=== PATIENT | male | born 1980 | race Caucasian/White ===

== ENCOUNTER 2021-01-26 17:58 | Inpatient (IN) ==
[2021-01-26] MEDS ORDERED: ETOMIDATE 20 MG/10 ML VIAL IV ONE (19:09)
[2021-01-26] MEDS ORDERED: ROCURONIUM 100 MG/10 ML VIAL IV ONE (19:09)
[2021-01-26 19:21] LABS: Basophils # 0.1 10*3/uL (0.0-0.2); Basophils % 0.9 % (0.0-0.8); Eosinophils # 0.3 10*3/uL (0.0-0.87); Eosinophils % 4.8 % (0.00-10.9); Hematocrit 30.6 VOL% (42.0-52.0); Hemoglobin 9.6 GM/DL (14.0-18.0); Immature Granulocytes % 0.3 %; Immature Granulocytes Absolute 0.02 #; Lymphocytes # 2.7 10*3/uL (1.4-4.0); Lymphocytes % 39.1 % (21.2-54.2); Mean Corpuscular HGB Conc 31.4 GM/DL (32-36); Mean Corpuscular Volume 92.4 FL (87-102); Mean Platelet Volume 11.1 FL (9.6-12.0); Monocytes % 4.7 % (1.7-12.7); Neutrophils % 50.2 % (38.7-73.9); Platelet Count 242 T/CUMM (130-400); Red Blood Count 3.31 MC/CUMM (3.8-5.5); Red Cell Distribution Width 11.9 % (9.3-17.3); White Blood Count 6.9 T/CUMM (4-12)
[2021-01-26 19:30] LABS: Bilirubin,Urine Negative (Negative); Blood, Urine Negative (Negative); Glucose,Urine (UA) Negative (Negative); Ketones,Urine Negative (Negative); Nitrite,Urine Negative (Negative); Protein,Urine Negative; Urine Appearance CLEAR (Clear); Urine Color Yellow (Yellow); Urine Specific Gravity 1.009 (1.001-1.035); Urine Urobilinogen < 2.0 EU/DL (<2.0)
[2021-01-26 19:34] LABS: INR 1.1; PT Patient Result 12.5 SECS (10.5-12.0); Partial Thromboplastin Time 22.2 SECS (23.8-32.1)
[2021-01-26 19:36] LABS: Alanine Aminotransferase 30 U/L (16-61); Albumin 3.5 G/DL (3.4-5.0); Alkaline Phosphatase 81 U/L (45-117); Amylase 38 U/L (25-115); Aspartate Amino Transferase 32 U/L (0-37); Blood Urea Nitrogen 9 MG/DL (7-18); Calcium 8.8 MG/DL (8.5-10.1); Carbon Dioxide 24 MMOL/L (21-32); Estimated Glom Filtration Rate 91 ML/MIN; Glucose 180 MG/DL (74-106); Osmolality,Calculated 282.4 MOS/KG (273-304); Potassium 3.5 MMOL/L (3.5-5.1); Sodium 140 MMOL/L (136-145); Total Protein 6.6 G/DL (6.4-8.2)
[2021-01-26 19:46] LABS: ABG Base Excess -2.8 MMOL/L (-2.5-2.5); ABG HCO3 22.1 MMOL/L (20-26); ABG Oxygen Saturation 99.5 % (95-100); ABG PCO2 55.4 MM HG (35-48); ABG PH 7.262 (7.35-7.45); ABG TCO2 22.8 MMOL/L (23-27)
[2021-01-26 19:47] LABS: Lactic Acid 5.7 MMOL/L (0.4-2.0)
[2021-01-26 19:49] LABS: Bacteria,Urine Occasional /HPF (Few); Hyaline Casts,Urine 1 /LPF (0-3); Mucus,Urine Occasional /LPF (Occasional); Squamous Epithelial Cell,Urine Occasional /HPF (0-10)
[2021-01-26 20:09] LABS: Barbiturates Screen,Urine Negative (Negative); Benzodiazepines Screen,Urine Positive (Negative); Cannabinoid Screen,Urine Negative (Negative); Opiate Screen,Urine Negative (Negative); Phencyclidine Screen,Urine Negative (Negative)
[2021-01-26] MEDS: LACTATED RINGERS 1,000 ML IV SCH (20:09)
[2021-01-26] MEDS: MIDAZOLAM 100 MG in SODIUM CHLORIDE 0.9% 80 ML IV PRN (20:35)
[2021-01-26] MEDS: HYDROmorphone 2 MG/1 ML VIAL IV PRN (21:02)
[2021-01-26] MEDS: fentaNYL INJ 1,250 MCG in SODIUM CHLORIDE 0.9% 225 ML IV PRN (21:30)
[2021-01-26 21:34] LABS: Basophils % 0.3 % (0.0-0.8); Eosinophils # 0.1 10*3/uL (0.0-0.87); Eosinophils % 0.5 % (0.00-10.9); Hematocrit 35.5 VOL% (42.0-52.0); Hemoglobin 11.4 GM/DL (14.0-18.0); Immature Granulocytes % 0.4 %; Immature Granulocytes Absolute 0.06 #; Lymphocytes # 1.9 10*3/uL (1.4-4.0); Lymphocytes % 12.9 % (21.2-54.2); Mean Corpuscular HGB Conc 32.1 GM/DL (32-36); Mean Platelet Volume 10.3 FL (9.6-12.0); Monocytes % 5.7 % (1.7-12.7); Neutrophils % 80.2 % (38.7-73.9); Platelet Count 182 T/CUMM (130-400); White Blood Count 14.6 T/CUMM (4-12)
[2021-01-26] MEDS ORDERED: SODIUM CHLORIDE 0.9% 1,000 ML IV PRN (23:30)
[2021-01-27] MEDS ORDERED: POTASSIUM CHLORIDE RIDER 20 MEQ/100 ML PREMIX IV PRN (01:35)
[2021-01-27] MEDS ORDERED: POTASSIUM CHLORIDE RIDER 10 MEQ/100 ML PREMIX IV PRN (01:35)
[2021-01-27] MEDS ORDERED: MAGNESIUM SULF RIDER 4 GM/100 ML PREMIX IV PRN (01:35)
[2021-01-27] MEDS: LACTATED RINGERS 1,000 ML IV SCH ×4 (02:50→21:40)
[2021-01-27] MEDS: HYDROmorphone 2 MG/1 ML VIAL IV PRN (03:45)
[2021-01-27 03:56] LABS: ABG Base Excess 0.1 MMOL/L (-2.5-2.5); ABG HCO3 26.1 MMOL/L (20-26); ABG Oxygen Saturation 96.2 % (95-100); ABG PCO2 48.4 MM HG (35-48); ABG PO2 86.4 MM HG (80-95); ABG TCO2 27.6 MMOL/L (23-27)
[2021-01-27] MEDS: MIDAZOLAM 100 MG in SODIUM CHLORIDE 0.9% 80 ML IV PRN (04:45)
[2021-01-27 05:36] LABS: Basophils % 0.3 % (0.0-0.8); Eosinophils # 0.1 10*3/uL (0.0-0.87); Eosinophils % 0.7 % (0.00-10.9); Hematocrit 31.9 VOL% (42.0-52.0); Hemoglobin 10.3 GM/DL (14.0-18.0); Immature Granulocytes % 0.4 %; Immature Granulocytes Absolute 0.04 #; Lymphocytes # 1.1 10*3/uL (1.4-4.0); Lymphocytes % 11.2 % (21.2-54.2); Mean Corpuscular HGB Conc 32.3 GM/DL (32-36); Mean Corpuscular Volume 91.4 FL (87-102); Mean Platelet Volume 11.2 FL (9.6-12.0); Neutrophils % 80.4 % (38.7-73.9); Platelet Count 150 T/CUMM (130-400); Red Blood Count 3.49 MC/CUMM (3.8-5.5); Red Cell Distribution Width 13.4 % (9.3-17.3)
[2021-01-27 05:53] LABS: Calcium 7.6 MG/DL (8.5-10.1); Potassium 3.8 MMOL/L (3.5-5.1)
[2021-01-27] MEDS: ONDANSETRON 4 MG/2 ML VIAL IV PRN ×2 (06:45→23:46)
[2021-01-27] MEDS ORDERED: CALCIUM GLUCONATE 1,000 MG in SODIUM CHLORIDE 0.9% 100 ML IV ONE (07:20)
[2021-01-27 07:30] LABS: Hematocrit 34.3 VOL% (42.0-52.0)
[2021-01-27] MEDS: fentaNYL INJ 1,250 MCG in SODIUM CHLORIDE 0.9% 225 ML IV PRN ×3 (08:21→21:38)
[2021-01-27] MEDS: DEXMEDETOMIDINE 200 MCG in SODIUM CHLORIDE 0.9% 48 ML IV PRN ×3 (08:58→23:08)
[2021-01-27] MEDS: PANTOPRAZOLE 40 MG VIAL IV SCH (09:04)
[2021-01-27] MEDS: VANCOMYCIN INJ 1,250 MG in SODIUM CHLORIDE 0.9% 250 ML IV SCH ×2 (10:15→21:39)
[2021-01-27] MEDS: MAGNESIUM SULF RIDER 2 GM/50 ML PREMIX IV PRN ×2 (13:35→15:23)
[2021-01-27 13:40] LABS: Hematocrit 28.6 VOL% (42.0-52.0); Hemoglobin 9.1 GM/DL (14.0-18.0)
[2021-01-27] MEDS ORDERED: LACTATED RINGERS 1,000 ML IV ONE (13:57)
[2021-01-27] MEDS ORDERED: SODIUM CHLORIDE 0.9% 1,000 ML IV PRN (16:04)
[2021-01-27 17:05] LABS: Basophils % 0.4 % (0.0-0.8); Eosinophils # 0.4 10*3/uL (0.0-0.87); Eosinophils % 4.7 % (0.00-10.9); Hematocrit 29.7 VOL% (42.0-52.0); Hemoglobin 9.5 GM/DL (14.0-18.0); Immature Granulocytes % 0.4 %; Immature Granulocytes Absolute 0.04 #; Lymphocytes # 1.8 10*3/uL (1.4-4.0); Lymphocytes % 18.8 % (21.2-54.2); Mean Platelet Volume 10.8 FL (9.6-12.0); Monocytes % 7.9 % (1.7-12.7); Neutrophils % 67.8 % (38.7-73.9); Platelet Count 141 T/CUMM (130-400); Red Blood Count 3.23 MC/CUMM (3.8-5.5); Red Cell Distribution Width 13.4 % (9.3-17.3); White Blood Count 9.4 T/CUMM (4-12)
[2021-01-27 17:13] LABS: INR 1.2; PT Patient Result 12.9 SECS (10.5-12.0)
[2021-01-27 17:19] LABS: Calcium 7.7 MG/DL (8.5-10.1); Osmolality,Calculated 281.1 MOS/KG (273-304)
[2021-01-27] MEDS: HYDROCORTISONE 100 MG VIAL IV SCH ×2 (18:14→23:20)
[2021-01-28] MEDS: HYDROmorphone 2 MG/1 ML VIAL IV PRN ×9 (01:09→22:14)
[2021-01-28] MEDS: LACTATED RINGERS 1,000 ML IV SCH ×3 (04:25→17:55)
[2021-01-28] MEDS: DEXMEDETOMIDINE 200 MCG in SODIUM CHLORIDE 0.9% 48 ML IV PRN ×2 (04:26→10:49)
[2021-01-28 05:10] LABS: ABG Base Excess -3.6 MMOL/L (-2.5-2.5); ABG HCO3 21.4 MMOL/L (20-26); ABG Oxygen Saturation 98.9 % (95-100); ABG PCO2 47.5 MM HG (35-48); ABG PH 7.293 (7.35-7.45); ABG TCO2 21.3 MMOL/L (23-27)
[2021-01-28 05:19] LABS: Basophils % 0.5 % (0.0-0.8); Eosinophils % 0.2 % (0.00-10.9); Hematocrit 30.4 VOL% (42.0-52.0); Hemoglobin 9.7 GM/DL (14.0-18.0); Immature Granulocytes % 0.4 %; Immature Granulocytes Absolute 0.03 #; Mean Corpuscular HGB Conc 31.9 GM/DL (32-36); Mean Corpuscular Volume 92.1 FL (87-102); Mean Platelet Volume 11.1 FL (9.6-12.0); Monocytes % 5.3 % (1.7-12.7); Neutrophils % 81.6 % (38.7-73.9); Platelet Count 121 T/CUMM (130-400); White Blood Count 8.4 T/CUMM (4-12)
[2021-01-28 05:30] LABS: Calcium 7.9 MG/DL (8.5-10.1); Osmolality,Calculated 282.1 MOS/KG (273-304)
[2021-01-28] MEDS: HYDROCORTISONE 100 MG VIAL IV SCH ×4 (05:36→22:14)
[2021-01-28] MEDS: PANTOPRAZOLE 40 MG VIAL IV SCH (09:01)
[2021-01-28] MEDS: VANCOMYCIN INJ 1,250 MG in SODIUM CHLORIDE 0.9% 250 ML IV SCH ×2 (09:34→22:14)
[2021-01-28 13:12] LABS: ABG Base Excess -2.3 MMOL/L (-2.5-2.5); ABG HCO3 22.4 MMOL/L (20-26); ABG Oxygen Saturation 94.1 % (95-100); ABG PCO2 48.1 MM HG (35-48); ABG PO2 73.4 MM HG (80-95); ABG TCO2 22.3 MMOL/L (23-27)
[2021-01-28 15:05] LABS: ABG Base Excess -0.3 MMOL/L (-2.5-2.5); ABG HCO3 24.2 MMOL/L (20-26); ABG Oxygen Saturation 96.9 % (95-100); ABG PCO2 31.6 MM HG (35-48); ABG PH 7.467 (7.35-7.45); ABG TCO2 20.7 MMOL/L (23-27)
[2021-01-29] MEDS: HYDROmorphone 2 MG/1 ML VIAL IV PRN ×6 (01:13→21:10)
[2021-01-29] MEDS: LACTATED RINGERS 1,000 ML IV SCH ×2 (02:15→10:41)
[2021-01-29] MEDS: HYDROCORTISONE 100 MG VIAL IV SCH ×2 (04:03→09:21)
[2021-01-29] MEDS: PANTOPRAZOLE 40 MG VIAL IV SCH (09:22)
[2021-01-29] MEDS: VANCOMYCIN INJ 1,250 MG in SODIUM CHLORIDE 0.9% 250 ML IV SCH (10:22)
[2021-01-29] MEDS: ALBUTEROL/IPRATROPIUM 3 ML NEB RESP TX SCH ×2 (12:55→19:55)
[2021-01-29] MEDS: GABAPENTIN 400 MG CAPSULE PO SCH ×2 (15:21→21:27)
[2021-01-29] MEDS: VANCOMYCIN INJ 1,500 MG in SODIUM CHLORIDE 0.9% 500 ML IV SCH (21:35)
[2021-01-30] MEDS: ALBUTEROL/IPRATROPIUM 3 ML NEB RESP TX SCH ×4 (02:55→19:54)
[2021-01-30] MEDS: HYDROmorphone 2 MG/1 ML VIAL IV PRN ×3 (03:55→20:42)
[2021-01-30 06:50] LABS: Basophils % 0.4 % (0.0-0.8); Eosinophils # 0.2 10*3/uL (0.0-0.87); Eosinophils % 2.9 % (0.00-10.9); Hematocrit 23.8 VOL% (42.0-52.0); Hemoglobin 7.7 GM/DL (14.0-18.0); Immature Granulocytes % 0.3 %; Immature Granulocytes Absolute 0.02 #; Lymphocytes # 2.6 10*3/uL (1.4-4.0); Lymphocytes % 34.9 % (21.2-54.2); Mean Corpuscular HGB Conc 32.4 GM/DL (32-36); Mean Corpuscular Volume 91.9 FL (87-102); Mean Platelet Volume 11.2 FL (9.6-12.0); Monocytes % 9.2 % (1.7-12.7); Neutrophils % 52.3 % (38.7-73.9); Platelet Count 170 T/CUMM (130-400); Red Blood Count 2.59 MC/CUMM (3.8-5.5); Red Cell Distribution Width 13.1 % (9.3-17.3); White Blood Count 7.4 T/CUMM (4-12)
[2021-01-30] MEDS: PANTOPRAZOLE 40 MG TABLET PO SCH (07:45)
[2021-01-30] MEDS: GABAPENTIN 400 MG CAPSULE PO SCH ×4 (07:45→20:51)
[2021-01-30 07:46] LABS: Calcium 8.1 MG/DL (8.5-10.1); Osmolality,Calculated 285.7 MOS/KG (273-304)
[2021-01-30] MEDS ORDERED: BUPRENORPHINE HCL 8 MG SL SCH (09:00)
[2021-01-30] MEDS: VANCOMYCIN INJ 1,500 MG in SODIUM CHLORIDE 0.9% 500 ML IV SCH ×2 (10:20→21:00)
[2021-01-31] MEDS: ALBUTEROL/IPRATROPIUM 3 ML NEB RESP TX SCH ×4 (00:44→20:01)
[2021-01-31] MEDS: HYDROmorphone 2 MG/1 ML VIAL IV PRN ×3 (03:52→19:42)
[2021-01-31] MEDS: GABAPENTIN 400 MG CAPSULE PO SCH ×3 (08:10→21:10)
[2021-01-31] MEDS: PANTOPRAZOLE 40 MG TABLET PO SCH (08:10)
[2021-01-31 10:34] LABS: Calcium 8.8 MG/DL (8.5-10.1); Osmolality,Calculated 278.3 MOS/KG (273-304); Potassium 3.2 MMOL/L (3.5-5.1)
[2021-01-31] MEDS: VANCOMYCIN INJ 1,500 MG in SODIUM CHLORIDE 0.9% 500 ML IV SCH ×2 (11:15→21:05)
[2021-01-31 13:56] LABS: Basophils # 0.1 10*3/uL (0.0-0.2); Basophils % 0.7 % (0.0-0.8); Eosinophils # 0.8 10*3/uL (0.0-0.87); Eosinophils % 11.2 % (0.00-10.9); Hematocrit 31.4 VOL% (42.0-52.0); Hemoglobin 10.2 GM/DL (14.0-18.0); Immature Granulocytes % 0.4 %; Immature Granulocytes Absolute 0.03 #; Lymphocytes # 1.6 10*3/uL (1.4-4.0); Lymphocytes % 22.4 % (21.2-54.2); Mean Corpuscular HGB Conc 32.5 GM/DL (32-36); Monocytes % 9.1 % (1.7-12.7); Neutrophils % 56.2 % (38.7-73.9); Platelet Count 217 T/CUMM (130-400); Red Blood Count 3.45 MC/CUMM (3.8-5.5); Red Cell Distribution Width 13.2 % (9.3-17.3); White Blood Count 7.1 T/CUMM (4-12)
[2021-01-31 14:53] LABS: Eosinophils 18 % (0-10); Lymphocytes 20 % (20-55); Segmented Neutrophils 57 % (50-85); Total Cells Counted 100
[2021-01-31 14:54] LABS: Platelet Estimate Normal; Polychromasia Slight
[2021-01-31] MEDS ORDERED: DOCUSATE SODIUM 100 MG CAPSULE PO PRN (16:25)
[2021-01-31] MEDS ORDERED: ALUMINUM/MAGNES/SIMETH MAX STR 30 ML UDCUP PO PRN (20:59)
[2021-02-01] MEDS: ALBUTEROL/IPRATROPIUM 3 ML NEB RESP TX SCH ×4 (02:20→20:30)
[2021-02-01] MEDS: HYDROmorphone 2 MG/1 ML VIAL IV PRN (04:47)
[2021-02-01 05:07] LABS: Basophils % 0.6 % (0.0-0.8); Eosinophils # 0.9 10*3/uL (0.0-0.87); Eosinophils % 12.4 % (0.00-10.9); Hematocrit 29.4 VOL% (42.0-52.0); Hemoglobin 9.6 GM/DL (14.0-18.0); Immature Granulocytes % 0.3 %; Immature Granulocytes Absolute 0.02 #; Lymphocytes % 28.3 % (21.2-54.2); Mean Corpuscular HGB Conc 32.7 GM/DL (32-36); Mean Corpuscular Volume 91.3 FL (87-102); Mean Platelet Volume 9.5 FL (9.6-12.0); Monocytes % 9.5 % (1.7-12.7); Neutrophils % 48.9 % (38.7-73.9); Platelet Count 223 T/CUMM (130-400); Red Blood Count 3.22 MC/CUMM (3.8-5.5); White Blood Count 6.9 T/CUMM (4-12)
[2021-02-01 05:30] LABS: PT Patient Result 11.2 SECS (10.5-12.0)
[2021-02-01 05:41] LABS: Eosinophils 6 % (0-10); Lymphocytes 20 % (20-55); Platelet Estimate Normal; Segmented Neutrophils 66 % (50-85)
[2021-02-01 05:42] LABS: Hypochromasia Slight; Total Cells Counted 100
[2021-02-01] MEDS ORDERED: HEPARIN/NACL 0.9% 2 UNITS/ML 1,000 UNIT/500 ML BAG IV ONE (08:20)
[2021-02-01] MEDS ORDERED: propofoL 200 MG/20 ML VIAL IV ONE (09:41)
[2021-02-01] MEDS ORDERED: ROCURONIUM 50 MG/5 ML VIAL IV ONE (09:41)
[2021-02-01] MEDS ORDERED: LIDOCAINE 2% 5 ML VIAL ONE (09:41)
[2021-02-01] MEDS ORDERED: ONDANSETRON 4 MG/2 ML VIAL ONE (09:41)
[2021-02-01] MEDS ORDERED: SUCCINYLCHOLINE 200 MG/10 ML VIAL ONE (09:41)
[2021-02-01] MEDS ORDERED: fentaNYL 100 MCG/2 ML VIAL ONE (09:41)
[2021-02-01] MEDS ORDERED: MIDAZOLAM 2 MG/2 ML VIAL ONE (09:41)
[2021-02-01] MEDS ORDERED: TALC INTRAPLEURAL POWDER 3 GM VIAL INTRAPLEUR ONE (09:50)
[2021-02-01] MEDS ORDERED: SEVOFLURANE 1 UNIT/15 MINUTE INH ONE (11:20)
[2021-02-01] MEDS ORDERED: GLYCOPYRROLATE 0.4 MG/2 ML VIAL ONE (11:20)
[2021-02-01] MEDS ORDERED: HYDROmorphone 2 MG/1 ML VIAL ONE (11:31)
[2021-02-01] MEDS: GABAPENTIN 400 MG CAPSULE PO SCH ×3 (12:42→20:25)
[2021-02-01] MEDS: PANTOPRAZOLE 40 MG TABLET PO SCH (12:42)
[2021-02-01] MEDS: VANCOMYCIN INJ 1,500 MG in SODIUM CHLORIDE 0.9% 500 ML IV SCH ×2 (12:42→21:44)
[2021-02-02] MEDS: ALBUTEROL/IPRATROPIUM 3 ML NEB RESP TX SCH ×4 (01:15→19:32)
[2021-02-02] MEDS: PANTOPRAZOLE 40 MG TABLET PO SCH (08:32)
[2021-02-02] MEDS: GABAPENTIN 400 MG CAPSULE PO SCH ×3 (08:32→20:38)
[2021-02-02] MEDS: VANCOMYCIN INJ 1,500 MG in SODIUM CHLORIDE 0.9% 500 ML IV SCH ×2 (11:21→22:22)
[2021-02-02] MEDS: POLYETHYLENE GLYCOL POWDER 17 GM PACK PO SCH (11:24)
[2021-02-03] MEDS: ALBUTEROL/IPRATROPIUM 3 ML NEB RESP TX SCH ×4 (00:50→20:03)
[2021-02-03 06:12] LABS: Hemoglobin 9.2 GM/DL (14.0-18.0); Red Blood Count 3.11 MC/CUMM (3.8-5.5); White Blood Count 7.4 T/CUMM (4-12)
[2021-02-03 06:13] LABS: Basophils # 0.1 10*3/uL (0.0-0.2); Basophils % 0.7 % (0.0-0.8); Eosinophils # 0.9 10*3/uL (0.0-0.87); Eosinophils % 12.4 % (0.00-10.9); Hematocrit 28.9 VOL% (42.0-52.0); Immature Granulocytes % 0.1 %; Immature Granulocytes Absolute 0.01 #; Lymphocytes # 1.6 10*3/uL (1.4-4.0); Lymphocytes % 21.3 % (21.2-54.2); Mean Corpuscular HGB Conc 31.8 GM/DL (32-36); Mean Corpuscular Volume 92.9 FL (87-102); Mean Platelet Volume 9.5 FL (9.6-12.0); Monocytes % 10.4 % (1.7-12.7); Neutrophils % 55.1 % (38.7-73.9); Platelet Count 293 T/CUMM (130-400); Red Cell Distribution Width 13.3 % (9.3-17.3)
[2021-02-03 06:32] LABS: Calcium 8.5 MG/DL (8.5-10.1); Potassium 3.4 MMOL/L (3.5-5.1)
[2021-02-03] MEDS: GABAPENTIN 400 MG CAPSULE PO SCH ×3 (09:48→20:06)
[2021-02-03] MEDS: POLYETHYLENE GLYCOL POWDER 17 GM PACK PO SCH (09:48)
[2021-02-03] MEDS: PANTOPRAZOLE 40 MG TABLET PO SCH (09:48)
[2021-02-03] MEDS: VANCOMYCIN INJ 1,500 MG in SODIUM CHLORIDE 0.9% 500 ML IV SCH (12:19)
[2021-02-04] MEDS: VANCOMYCIN INJ 1,500 MG in SODIUM CHLORIDE 0.9% 500 ML IV SCH (00:02)
[2021-02-04] MEDS: ALBUTEROL/IPRATROPIUM 3 ML NEB RESP TX SCH ×4 (01:50→19:22)
[2021-02-04] MEDS: PANTOPRAZOLE 40 MG TABLET PO SCH (08:43)
[2021-02-04] MEDS: POLYETHYLENE GLYCOL POWDER 17 GM PACK PO SCH (08:43)
[2021-02-04] MEDS: GABAPENTIN 400 MG CAPSULE PO SCH ×3 (08:43→20:35)
[2021-02-05] MEDS: ALBUTEROL/IPRATROPIUM 3 ML NEB RESP TX SCH ×2 (01:32→07:30)
[2021-02-05 08:02] VITALS: BP 146/92
[2021-02-05] MEDS: POLYETHYLENE GLYCOL POWDER 17 GM PACK PO SCH (08:23)
[2021-02-05] MEDS: PANTOPRAZOLE 40 MG TABLET PO SCH (08:23)
[2021-02-05] MEDS: GABAPENTIN 400 MG CAPSULE PO SCH (08:23)
== END 2021-02-05 11:01 | disposition home or self-care (01) | DRG 135 ==
LOC: EDBD → EDUNIT# → N.ED 17:58 → N.EDINP 19:53 → N.ICU 20:32 → N.3E 02-01 13:45
PROVIDERS: ADMIT Student in an Organized Health Care Education/Training Program; ATTEND Student in an Organized Health Care Education/Training Program